=== PATIENT | female | born 1990 | race Caucasian/White ===

== ENCOUNTER 2023-07-22 22:30 | Emergency (ER) | payer OTHER ==
--- NOTE | 2023-07-22 23:01 | ED ---
Anxiety HPI - General Chief Complaint: Anxiety Stated Complaint: ANXIETY Time Seen by Provider: 07/22/23 22:53 Source: patient, EMS, RN notes reviewed Mode of arrival: EMS Limitations: no limitations - History of Present Illness Initial Comments: 32 year old female presenting to the ER via EMS with a chief complaint of numb lips. She is currently residing at [facility] for rehab. 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 She states while taking her medications, Seroquel and Vraylar, this evening she started to have a buzzing in her ears. She also r eports numbness around her lips and in the tips of bilateral fingers. Patient does have a known history of anxiety. She states during the symptoms she was thinking about a recent in June and became upset. She states her symptoms have since improved. She denies any headache, cough, congestion, chest pain, shortness of breath, abdominal pain, constipation/diarrhea, urinary complaints or peripheral edema. - Related Data Home Medications: Home Medications Medication Instructions Recorded Confirmed Acetaminophen [Tylenol] 650 mg PO Q4H PRN 07/07/21 07/07/21 Calcium/Magnesium/Zinc/Vitamin D 1 tab PO TID PRN 07/07/21 07/07/21 334/134/5mg Chlorpheniramine Maleate 4 mg PO Q4H PRN 07/07/21 07/07/21 [Chlor-Trimeton] Hyoscyamine Sulfate [Levsin] 0.125 mg PO QID PRN 07/07/21 07/07/21 Ibuprofen [Motrin Ib] 600 mg PO Q6H PRN 07/07/21 07/07/21 Loperamide [Imodium] 4 mg PO QID PRN 07/07/21 07/07/21 Magnesium Hydroxide [Milk of 2,400 mg PO BID PRN 07/07/21 07/07/21 Magnesia] Methadone HCl [Methadone Intensol] 40 mg PO DAILY 07/07/21 07/07/21 cloNIDine HCL [Catapres] 0.1 - 0.3 mg PO Q4H PRN 07/07/21 07/07/21 ondansetron HCL [Zofran] 8 mg PO Q6H PRN 07/07/21 07/07/21 traZODone HCL 50 - 150 mg PO HS 07/07/21 07/07/21 Allergies/Adverse Reactions: Allergies Allergy/AdvReac Type Severity Reaction Status Date / Time sulfamethoxazole Allergy Rash/Hives Verified 07/22/23 22:37 [From Bactrim] trimethoprim [From Bactrim] Allergy Rash/Hives Verified 07/22/23 22:37 Review of Systems ROS Statement: Those systems with pertinent positive or pertinent negative responses have been documented in the HPI. ROS Other: All systems not noted in ROS Statement are negative. Past Medical History Past Medical History: No Reported History History of Any Multi-Drug Resistant Organisms: None Reported Additional Past Surgical History / Comment(s): Spleen repaired Past Psychological History: Anxiety, Bipolar Smoking Status: Current every day smoker Past Alcohol Use History: None Reported Past Drug Use History: Cocaine, Heroin, Marijuana, Opiates - Past Family History Mother Family Medical History: Liver Disease General Exam Limitations: no limitations General appearance: alert, in no apparent distress Head exam: Present: atraumatic, normocephalic, normal inspection Eye exam: Present: normal appearance, PERRL, EOMI. Absent: scleral icterus, conjunctival injection, periorbital swelling Pupils: Present: normal accommodation ENT exam: Present: normal exam, normal oropharynx, mucous membranes moist, TM's normal bilaterally Respiratory exam: Present: normal lung sounds bilaterally. Absent: respiratory distress, wheezes, rales, rhonchi, stridor Cardiovascular Exam: Present: regular rate, normal rhythm, normal heart sounds. Absent: systolic murmur, diastolic murmur, rubs, gallop, clicks GI/Abdominal exam: Present: soft, normal bowel sounds. Absent: distended, tenderness, guarding, rebound, rigid Neurological exam: Present: alert, oriented X3, CN II-XII intact Psychiatric exam: Present: anxious Skin exam: Present: warm, dry, intact, normal color, other (Healed scars on bilateral forearms. Healed surgical scar on abdomen.). Absent: rash Course Vital Signs 07/22/23 07/23/23 22:33 01:44 Temperature 98.3 F 98.6 F Pulse Rate 101 H 88 Respiratory 18 18 Rate Blood Pressure 129/93 145/80 O2 Sat by Pulse 96 98 Oximetry Medical Decision Making - Medical Decision Making Was pt. sent in by a medical professional or institution (, PA, ENVIRONMENTAL MARKETING REPRESENTATIVE, urgent care, hospital, or correction...) When possible be specific @ -Patient sent from [facility] for evaluation. Did you speak to anyone other than the patient for history (EMS, parent, family, police, friend...)? What history was obtained from this source @ -No Did you review nursing and triage notes (agree or disagree)? Why? @ -I reviewed and agree with nursing and triage notes Were old charts reviewed (outside hosp., previous admission, EMS record, old EKG, old radiological studies, urgent care reports/EKG's, correction records)? Report findings @ -No old charts were reviewed Differential Diagnosis (chest pain, altered mental status, abdominal pain women, abdominal pain men, vaginal bleeding, weakness, fever, dyspnea, syncope, headache, dizziness, GI bleed, back pain, seizure, CVA, palpatations, mental health, musculoskeletal)? @ -Differential Mental Health: Depression, anxiety, bipolar, psychosis, schizophrenia, borderline personality, situational depression, adjustment disorder, behavioral disorder, brain tumor, malingering, substance abuse, encephalopathy, medication reaction, dementia, hypothyroidism, degenerative neurologic disorder, lupus.... This is not meant to be all-inclusive list EKG interpreted by me (3pts min.). @ -None X-rays interpreted by me (1pt min.). @ -None done CT interpreted by me (1pt min.). @ -None done U/S interpreted by me (1pt. min.). @ -None done What testing was considered but not performed or refused? (CT, X-rays, U/S, labs)? Why? @ -None What meds were considered but not given or refused? Why? @ -None Did you discuss the management of the patient with other professionals (professionals i.e. , PA, ENVIRONMENTAL MARKETING REPRESENTATIVE, lab, RT, psych nurse, psychotherapist social worker, lump inspector, teacher, homicide squad commanding officer, human services case manager)? Give summary @ -No Was smoking cessation discussed for >3mins.? @ -No Was critical care preformed (if so, how long)? @ -No Were there social determinants of health that impacted care today? How? (Homelessness, low income, unemployed, alcoholism, drug addiction, transportation, low edu. Level, literacy, decrease access to med. care, long term, rehab)? @ -Yes, patient currently resides at [facility] for rehab of heroin use. Was there de-escalation of care discussed even if they declined (Discuss DNR or withdrawal of care, Hospice)? DNR status @ -No What co-morbidities impacted this encounter? (DM, HTN, Smoking, COPD, CAD, Cancer, CVA, ARF, Chemo, Hep., AIDS, mental health diagnosis, sleep apnea, morbid obesity)? @ -Heroin use, anxiety Was patient admitted / discharged? Hospital course, mention meds given and route, prescriptions, significant lab abnormalities, going to OR and other pertinent info. @ -Discharge. 32-year-old female presenting to the ER with chief complaint of numb lips. History and physical exam completed. Vitals stable. Patient in no signs of acute distress and nontoxic-appearing. No acute neurological findings on exam. Patient received by mouth Ativan in the ER. Patient monitored in the ER with improvement of symptoms. Symptoms believed to be due to anxiety. Return parameters discussed. Patient discharged stable condition went back to [facility]. Patient expressed verbal understanding and agreement with care plan. Case discussed with Dr. Siddiqui. Undiagnosed new problem with uncertain prognosis? @ -No Drug Therapy requiring intensive monitoring for toxicity (Heparin, Nitro, Insulin, Cardizem)? @ -No Were any procedures done? @ -No Diagnosis/symptom? @ -Anxiety Acute, or Chronic, or Acute on Chronic? @ -Acute Uncomplicated (without systemic symptoms) or Complicated (systemic symptoms)? @ -Uncomplicated Side effects of treatment? @ -No Exacerbation, Progression, or Severe Exacerbation? @ -No Poses a threat to life or bodily function? How? (Chest pain, USA, DC, pneumonia, PE, COPD, DKA, ARF, appy, cholecystitis, CVA, Diverticulitis, Homicidal, Suicidal, threat to staff... and all critical care pts) @ -No Disposition Clinical Impression: Acute anxiety Disposition: HOME SELF-CARE Condition: Stable Instructions (If sedation given, give patient instructions): Generalized Anxiety Disorder (ED) Additional Instructions: Follow-up with PCP. Return to the ER for any new or worsening concerns. Is patient prescribed a controlled substance at d/c from ED?: No Referrals: None,Stated [Primary Care Provider] - 1-2 days Time of Disposition: 06:48
[2023-07-22 23:07] VITALS: RESP 18
[2023-07-22] MEDS: LORazepam 1 MG TAB PO STA (23:44)
[2023-07-23 02:03] VITALS: BP 145/80; PULSE 88; TEMP 98.6
== END 2023-07-23 01:48 | disposition home or self-care (01) ==
LOC: EC 22:30
DX: F41.9 Anxiety disorder, unspecified (principal); F11.90 Opioid use, unspecified, uncomplicated; F17.200 Nicotine dependence, unspecified, uncomplicated; Z88.1 Allergy status to other antibiotic agents; Z88.2 Allergy status to sulfonamides
CPT/HCPCS: 99283